=== PATIENT | female | born 1960 | race Caucasian/White ===

== ENCOUNTER 2020-05-07 13:19 | Inpatient (IN) | payer MEDICAID ==
[~2020-05-07] VITALS: Ht 167.6 cm; Wt 77.1 kg
[2020-05-07] MEDS: FAMOTIDINE 20MG TABLET PO SCH
[2020-05-07 14:02] LABS: BASOPHILS % 0.8 % (0.0-2.0); EOSINOPHILS % 2.2 % (0.0-5.0); HEMATOCRIT. 35.3 % (36.0-48.0); HEMOGLOBIN. 11.8 g/dL (12.0-16.0); LYMPHOCYTES % 40.3 % (20.0-50.0); MEAN CORPUSCULAR HEMOGLOBIN 35.8 pg (28.0-32.0); MEAN PLATELET VOLUME 7.7 fl (7.4-10.4); MONOCYTES % 11.5 % (2.0-8.0); NEUTROPHILS % 45.2 % (40.0-76.0); PLATELET 372 x1000/uL (130-400); RED CELL DISTRIBUTION WIDTH 19.5 % (11.6-14.6)
[2020-05-07 14:10] LABS: INR 1.1; PROTHROMBIN TIME 11.6 sec (9.6-11.0)
[2020-05-07 14:13] LABS: CHLORIDE 109 mEq/L (98-107)
[2020-05-07 14:17] LABS: ETHANOL BLOOD < 10 mg/dL
[2020-05-07 14:20] LABS: LDL CHOLESTEROL 69 mg/dL (5-100)
[2020-05-07] MEDS ORDERED: MORPHINE SULFATE 4 MG/ML CPJ (NOT FOR IM USE) IV ONE ×2 (14:30→16:15)
[2020-05-07] MEDS ORDERED: ASPIRIN 81MG TABLET PO ONE (14:30)
[2020-05-07] MEDS ORDERED: NITROGLYCERIN 0.4MG TABLET SL SL PRN (14:30)
[2020-05-07] MEDS ORDERED: ALTEPLASE 100MG/VIAL IV NR (14:56)
[2020-05-07] MEDS ORDERED: CONTAINER EMPTY IV SCH (14:57)
[2020-05-07] MEDS ORDERED: ALTEPLASE IV SCH (14:57)
[2020-05-07] MEDS ORDERED: *NO ASPIRIN X 24 HOURS XX SCH (15:00)
[2020-05-07] MEDS ORDERED: IOHEXOL 350 MG/ML 200ML INFUS..BTL IV ONE (15:13)
[2020-05-07] MEDS ORDERED: NICARDIPINE 50 MG in SODIUM CHLORIDE 0.9% 230 ML IV PRN (16:00)
[2020-05-07] MEDS ORDERED: NICARDIPINE 50 MG in SODIUM CHLORIDE 0.9% 250 ML IV PRN (16:15)
[2020-05-07] MEDS ORDERED: ZOLPIDEM TARTRATE 5MG TABLET PO PRN (20:45)
[2020-05-07] MEDS ORDERED: ONDANSETRON HCL 4MG/2ML INJ IV PRN (20:45)
[2020-05-07] MEDS ORDERED: CLONIDINE 0.1MG TABLET PO PRN (20:45)
[2020-05-07] MEDS ORDERED: HYDROCODONE/ACETAMINOPHEN 5/325MG TABLET PO PRN (20:45)
[2020-05-07] MEDS ORDERED: KETOROLAC 30MG/ML VIAL IV PRN (20:45)
[2020-05-07] MEDS ORDERED: MAGNESIUM/ALUMINUM HYDROXIDE/SIMETHICONE 30ML UDC PO PRN (20:45)
[2020-05-07] MEDS ORDERED: ACETAMINOPHEN 325MG TABLET PO PRN ×2 (20:45)
[2020-05-07] MEDS ORDERED: DIPHENHYDRAMINE 50MG/ML VIAL IV PRN (20:45)
[2020-05-07] MEDS: MORPHINE SULFATE 2 MG/ML CPJ (NOT FOR IM USE) IV PRN (21:40)
[2020-05-08] VITALS (18 sets, daily range): BP systolic 96–162; BP diastolic 45–96
[2020-05-08] MEDS: MORPHINE SULFATE 2 MG/ML CPJ (NOT FOR IM USE) IV PRN ×6 (02:00→20:24)
[2020-05-08] MEDS ORDERED: NICARDIPINE 50 MG in SODIUM CHLORIDE 0.9% 230 ML IV PRN (02:00)
[2020-05-08] MEDS: FAMOTIDINE 20MG TABLET PO SCH ×2 (10:10→20:23)
[2020-05-08] MEDS: AMLODIPINE 5MG TABLET PO SCH ×2 (10:10→20:23)
[2020-05-08] MEDS: SODIUM CHLORIDE 0.9% INJ 3ML FLUSH IVF SCH ×2 (12:16→20:23)
[2020-05-08 15:52] LABS: EOSINOPHILS % 2.6 % (0.0-5.0); HEMATOCRIT. 35.1 % (36.0-48.0); HEMOGLOBIN. 11.5 g/dL (12.0-16.0); LYMPHOCYTES % 35.7 % (20.0-50.0); MEAN CORPUSCULAR HEMOGLOBIN 36.2 pg (28.0-32.0); MEAN CORPUSCULAR VOLUME 110.4 fL (81.0-99.0); MEAN PLATELET VOLUME 8.2 fl (7.4-10.4); MONOCYTES % 12.3 % (2.0-8.0); NEUTROPHILS % 48.4 % (40.0-76.0); PLATELET 355 x1000/uL (130-400); RED BLOOD CELL COUNT 3.18 mill/uL (4.2-5.4); RED CELL DISTRIBUTION WIDTH 19.3 % (11.6-14.6)
[2020-05-08 18:03] LABS: PLATELET ESTIMATE NORMAL
[2020-05-09] VITALS (29 sets, daily range): BP systolic 92–167; BP diastolic 44–117
[2020-05-09] MEDS: MORPHINE SULFATE 2 MG/ML CPJ (NOT FOR IM USE) IV PRN ×4 (00:28→12:37)
[2020-05-09] MEDS: SODIUM CHLORIDE 0.9% INJ 3ML FLUSH IVF SCH ×2 (06:00→16:14)
[2020-05-09 06:16] LABS: CHLORIDE 108 mEq/L (98-107)
[2020-05-09 06:18] LABS: BASOPHILS % 0.8 % (0.0-2.0); EOSINOPHILS % 3.6 % (0.0-5.0); HEMATOCRIT. 35.3 % (36.0-48.0); HEMOGLOBIN. 11.7 g/dL (12.0-16.0); LYMPHOCYTES % 46.2 % (20.0-50.0); MEAN CORPUSCULAR HEMOGLOBIN 35.5 pg (28.0-32.0); MEAN CORPUSCULAR VOLUME 107.2 fL (81.0-99.0); MONOCYTES % 14.4 % (2.0-8.0); PLATELET 322 x1000/uL (130-400); RED BLOOD CELL COUNT 3.29 mill/uL (4.2-5.4); RED CELL DISTRIBUTION WIDTH 19.3 % (11.6-14.6)
[2020-05-09] MEDS: FAMOTIDINE 20MG TABLET PO SCH ×2 (08:35→20:34)
[2020-05-09] MEDS: AMLODIPINE 5MG TABLET PO SCH ×2 (08:35→20:34)
[2020-05-09] MEDS ORDERED: CLOPIDOGREL 75MG TABLET PO SCH (09:00)
[2020-05-09] MEDS ORDERED: ASPIRIN 81MG TABLET PO SCH (09:00)
[2020-05-09] MEDS ORDERED: LORAZEPAM 2MG/ML CPJ IV NR (11:00)
== END 2020-05-09 21:12 | DRG 45 ==
LOC: ER 13:41 → MICUSO 17:37 → EDBEDREQSVC 17:45 → EDBEDREQ 17:45 → 5EST 05-08 07:23 → CVICU 05-09 02:55 → 3WST 05-09 11:41
PROVIDERS: ADMIT Internal Medicine; ATTEND Internal Medicine
DX: I63.9 Cerebral infarction, unspecified (principal); N17.9 Acute kidney failure, unspecified; E44.0 Moderate protein-calorie malnutrition; R07.9 Chest pain, unspecified; I10 Essential (primary) hypertension; I25.10 Atherosclerotic heart disease of native coronary artery without angina pectoris; Z20.822 Contact with and (suspected) exposure to COVID-19; Z87.891 Personal history of nicotine dependence; I69.954 Hemiplegia and hemiparesis following unspecified cerebrovascular disease affecting left non-dominant side
CPT/HCPCS: 36415; 70496; 70551; 71045; 80048; 80053; 80061; 80320; 82962; 83721; 84484; 85025; 87426; 93005; 93880; 95816; 97162; 99291; J1885; J2060; J2270; J2997; J7060; Q9967; G0480

== ENCOUNTER 2020-05-10 14:10 | Inpatient (IN) | payer MEDICAID ==
[~2020-05-10] VITALS: Ht 157.5 cm; Wt 68.9 kg
[2020-05-10] MEDS ORDERED: NITROGLYCERIN OINT 1GM/INCH UDPKT TD ONE (15:00)
[2020-05-10] MEDS ORDERED: ASPIRIN 81MG TABLET PO ONE (15:00)
[2020-05-10 15:43] LABS: CHLORIDE 105 mEq/L (98-107)
[2020-05-10 15:45] LABS: PROTHROMBIN TIME 11.2 sec (9.6-11.0)
[2020-05-10 15:47] LABS: BASOPHILS % 0.5 % (0.0-2.0); EOSINOPHILS % 0.9 % (0.0-5.0); HEMATOCRIT. 40.3 % (36.0-48.0); HEMOGLOBIN. 13.4 g/dL (12.0-16.0); LYMPHOCYTES % 28.4 % (20.0-50.0); MEAN CORPUSCULAR HEMOGLOBIN 35.8 pg (28.0-32.0); MEAN CORPUSCULAR VOLUME 107.3 fL (81.0-99.0); MEAN PLATELET VOLUME 7.8 fl (7.4-10.4); MONOCYTES % 9.6 % (2.0-8.0); NEUTROPHILS % 60.6 % (40.0-76.0); PLATELET 347 x1000/uL (130-400); RED BLOOD CELL COUNT 3.76 mill/uL (4.2-5.4); RED CELL DISTRIBUTION WIDTH 18.1 % (11.6-14.6)
[2020-05-10] MEDS ORDERED: MORPHINE SULFATE 2 MG/ML CPJ (NOT FOR IM USE) IV ONE (18:00)
[2020-05-10] MEDS ORDERED: MAGNESIUM/ALUMINUM HYDROXIDE/SIMETHICONE 30ML UDC PO PRN (18:30)
[2020-05-10] MEDS ORDERED: CLONIDINE 0.1MG TABLET PO PRN (18:30)
[2020-05-10] MEDS ORDERED: ACETAMINOPHEN 325MG TABLET PO PRN (18:30)
[2020-05-10] MEDS ORDERED: SODIUM CHLORIDE 0.45% 1,000 ML IV ONE (18:30)
[2020-05-10] MEDS ORDERED: ONDANSETRON HCL 4MG/2ML INJ IV PRN (18:30)
[2020-05-10] MEDS ORDERED: DOCUSATE SODIUM 100MG CAPSULE PO PRN (18:30)
[2020-05-10] MEDS: CLOPIDOGREL 75MG TABLET PO SCH (18:40)
[2020-05-10] MEDS: METOPROLOL TARTRATE 25MG TABLET PO SCH (18:40)
[2020-05-10] MEDS: AMLODIPINE 10MG TABLET PO SCH (18:41)
[2020-05-10 22:09] VITALS: BP 168/80
[2020-05-10 22:35] VITALS: BP 149/82
[2020-05-10] MEDS: HYDROCODONE/ACETAMINOPHEN 5/325MG TABLET PO PRN ×2 (22:53→23:19)
[2020-05-10] MEDS: KETOROLAC 30MG/ML VIAL IV PRN (23:57)
[2020-05-11 00:48] LABS: CREATINE KINASE MB FRACTION 1.1 ng/mL (0.5-3.6)
[2020-05-11 00:52] VITALS: BP 138/88
[2020-05-11 04:00] VITALS: BP 162/83
[2020-05-11] MEDS: KETOROLAC 30MG/ML VIAL IV PRN (06:25)
[2020-05-11] MEDS ORDERED: LORAZEPAM 2MG/ML CPJ IV SCH (06:45)
[2020-05-11 07:06] LABS: CHLORIDE 108 mEq/L (98-107)
[2020-05-11 07:27] LABS: LDL CHOLESTEROL 88 mg/dL (5-100)
[2020-05-11 07:28] LABS: CREATINE KINASE 46 IU/L (26-192)
[2020-05-11 07:29] LABS: HDL CHOLESTEROL 63 mg/dL (40-59)
[2020-05-11 07:31] LABS: CREATINE KINASE MB FRACTION 1.1 ng/mL (0.5-3.6)
[2020-05-11 08:00] VITALS: BP 156/77
[2020-05-11] MEDS: MORPHINE SULFATE 2 MG/ML CPJ (NOT FOR IM USE) IV PRN ×4 (08:35→23:55)
[2020-05-11] MEDS: ASPIRIN 81MG EC TABLET PO SCH (09:00)
[2020-05-11 11:12] LABS: EOSINOPHILS % 1.2 % (0.0-5.0); HEMOGLOBIN. 12.4 g/dL (12.0-16.0); LYMPHOCYTES % 29.4 % (20.0-50.0); MEAN CORPUSCULAR HEMOGLOBIN 35.7 pg (28.0-32.0); MEAN CORPUSCULAR VOLUME 106.5 fL (81.0-99.0); MEAN PLATELET VOLUME 8.1 fl (7.4-10.4); MONOCYTES % 6.8 % (2.0-8.0); NEUTROPHILS % 61.6 % (40.0-76.0); RED BLOOD CELL COUNT 3.48 mill/uL (4.2-5.4); RED CELL DISTRIBUTION WIDTH 18.2 % (11.6-14.6)
[2020-05-11 11:14] LABS: PLATELET 369 x1000/uL (130-400)
[2020-05-11 11:39] LABS: T4 FREE 0.62 ng/dL (0.76-1.46)
[2020-05-11 12:00] VITALS: BP 135/73
[2020-05-11] MEDS: AMLODIPINE 10MG TABLET PO SCH ×2 (12:26→12:30)
[2020-05-11] MEDS: CLOPIDOGREL 75MG TABLET PO SCH (12:29)
[2020-05-11] MEDS: METOPROLOL TARTRATE 25MG TABLET PO SCH ×2 (12:30→17:45)
[2020-05-11 16:00] VITALS: BP 129/70
[2020-05-11] MEDS ORDERED: REGADENOSON 0.4 MG/5 ML IV NR (16:00)
[2020-05-11 16:15] LABS: CREATINE KINASE 34 IU/L (26-192)
[2020-05-11 16:22] LABS: CREATINE KINASE MB FRACTION < 1.0 ng/mL (0.5-3.6)
[2020-05-11 20:00] VITALS: BP 118/63
[2020-05-11] MEDS: LEVETIRACETAM 500MG TABLET PO SCH (20:18)
[2020-05-12] VITALS: BP 137/71
[2020-05-12 00:47] LABS: CREATINE KINASE MB FRACTION 1.2 ng/mL (0.5-3.6)
[2020-05-12 04:00] VITALS: BP 150/69
[2020-05-12] MEDS: MORPHINE SULFATE 2 MG/ML CPJ (NOT FOR IM USE) IV PRN ×4 (05:15→19:49)
[2020-05-12 07:12] LABS: CREATINE KINASE 32 IU/L (26-192)
[2020-05-12 07:14] LABS: CREATINE KINASE MB FRACTION < 1.0 ng/mL (0.5-3.6)
[2020-05-12 08:00] VITALS: BP 155/73
[2020-05-12] MEDS: METOPROLOL TARTRATE 25MG TABLET PO SCH ×3 (09:00→18:20)
[2020-05-12] MEDS: ASPIRIN 81MG EC TABLET PO SCH (09:36)
[2020-05-12] MEDS: CLOPIDOGREL 75MG TABLET PO SCH (09:37)
[2020-05-12] MEDS: LEVETIRACETAM 500MG TABLET PO SCH ×2 (09:37→20:57)
[2020-05-12 12:00] VITALS: BP 152/84
[2020-05-12 16:00] VITALS: BP 128/70
[2020-05-12] MEDS: LOSARTAN POTASSIUM 50 MG TABLET PO SCH (18:19)
[2020-05-12 20:00] VITALS: BP 126/76
[2020-05-13] VITALS: BP 130/66
[2020-05-13] MEDS: MORPHINE SULFATE 2 MG/ML CPJ (NOT FOR IM USE) IV PRN ×3 (00:14→08:50)
[2020-05-13 04:00] VITALS: BP 130/60
[2020-05-13 08:00] VITALS: BP 143/75
[2020-05-13] MEDS: LEVETIRACETAM 500MG TABLET PO SCH (08:48)
[2020-05-13] MEDS: ASPIRIN 81MG EC TABLET PO SCH (08:48)
[2020-05-13] MEDS: LOSARTAN POTASSIUM 50 MG TABLET PO SCH (08:48)
[2020-05-13] MEDS: AMLODIPINE 10MG TABLET PO SCH (08:49)
[2020-05-13] MEDS: CLOPIDOGREL 75MG TABLET PO SCH (08:52)
[2020-05-13] MEDS: METOPROLOL TARTRATE 25MG TABLET PO SCH (08:53)
[2020-05-13 11:23] VITALS: BP 143/72
[2020-05-13 12:00] VITALS: BP 143/72
== END 2020-05-13 13:50 | DRG 203 ==
LOC: ER 14:10 → EDBEDREQ 14:54 → EDBEDREQTM 16:56 → 8WST 17:27 → EDBEDREQ 17:39 → EDBEDREQTM 17:48 → ENRESERV 20:37
PROVIDERS: ADMIT Hospitalist; ATTEND Hospitalist
PROC: 4A00X4Z Measurement of Central Nervous Electrical Activity, External Approach (ICD-10-PCS; principal; 2020-05-09)
DX: M94.0 Chondrocostal junction syndrome [Tietze] (principal); N17.0 Acute kidney failure with tubular necrosis; R13.10 Dysphagia, unspecified; E78.5 Hyperlipidemia, unspecified; G40.909 Epilepsy, unspecified, not intractable, without status epilepticus; I16.0 Hypertensive urgency; I10 Essential (primary) hypertension; Z20.822 Contact with and (suspected) exposure to COVID-19; I25.10 Atherosclerotic heart disease of native coronary artery without angina pectoris; R77.8 Other specified abnormalities of plasma proteins; I69.398 Other sequelae of cerebral infarction; I73.1 Thromboangiitis obliterans [Buerger's disease]; I69.334 Monoplegia of upper limb following cerebral infarction affecting left non-dominant side
CPT/HCPCS: 36415; 70551; 71045; 80053; 80061; 82550; 82553; 83036; 83880; 84439; 84443; 84484; 85025; 85379; 87426; 92610; 93005; 93306; 93970; 95816; 99285; J1885; J2060; J2270

== ENCOUNTER 2020-07-14 23:05 | Inpatient (IN) | payer MEDICAID ==
[~2020-07-14] VITALS: Ht 132.1 cm; Wt 73.5 kg
[2020-07-14] MEDS ORDERED: MORPHINE SULFATE 4 MG/ML CPJ (NOT FOR IM USE) IV STA (23:22)
[2020-07-14] MEDS ORDERED: ONDANSETRON HCL 4MG/2ML INJ IV STA (23:22)
[2020-07-14] MEDS ORDERED: SODIUM CHLORIDE 0.9% 1,000 ML IV ONE (23:30)
[2020-07-15] VITALS (8 sets, daily range): BP systolic 81–126; BP diastolic 49–81
[2020-07-15 00:04] LABS: EOSINOPHILS % 0.6 % (0.0-5.0); HEMATOCRIT. 35.2 % (36.0-48.0); HEMOGLOBIN. 11.8 g/dL (12.0-16.0); LYMPHOCYTES % 22.1 % (20.0-50.0); MEAN CORPUSCULAR HEMOGLOBIN 31.8 pg (28.0-32.0); MONOCYTES % 6.5 % (2.0-8.0); NEUTROPHILS % 69.8 % (40.0-76.0); PLATELET 738 x1000/uL (130-400); RED CELL DISTRIBUTION WIDTH 17.2 % (11.6-14.6)
[2020-07-15 00:11] LABS: CHLORIDE 105 mEq/L (98-107)
[2020-07-15] MEDS ORDERED: IPRATROPIUM/ALBUTEROL 0.5-3(2.5)MG/3ML NEB HHN PRN (02:15)
[2020-07-15] MEDS ORDERED: ACETAMINOPHEN 325MG TABLET PO PRN (02:15)
[2020-07-15] MEDS: ONDANSETRON HCL 4MG/2ML INJ IV PRN ×2 (02:59→10:31)
[2020-07-15] MEDS: HYDROCODONE/APAP 7.5/325MG 1 TAB TABLET PO PRN ×2 (03:16→21:51)
[2020-07-15] MEDS: PANTOPRAZOLE SODIUM 40 MG/VIAL IV SCH ×3 (03:44→21:00)
[2020-07-15] MEDS: SODIUM CHLORIDE 0.9% 1,000 ML IV SCH ×3 (04:03→21:53)
[2020-07-15] MEDS: MORPHINE SULFATE 2 MG/ML CPJ (NOT FOR IM USE) IV PRN ×4 (05:32→19:00)
[2020-07-15] MEDS: SUCRALFATE 1 G/10 ML UDC PO SCH ×4 (10:29→21:00)
[2020-07-15] MEDS ORDERED: ATOR40TA70 PO (11:43)
[2020-07-15] MEDS ORDERED: ASPI-1406 PO (11:43)
[2020-07-15] MEDS ORDERED: OMEP20CA14 PO (11:43)
[2020-07-15] MEDS ORDERED: DOCU100T MT (11:43)
[2020-07-15] MEDS ORDERED: LISI20TA31 PO (11:43)
[2020-07-15] MEDS ORDERED: LOV40 SQ (11:43)
[2020-07-15] MEDS ORDERED: CLON0.1T PO (11:43)
[2020-07-15] MEDS ORDERED: ZOLP5TAB2 PO (11:43)
[2020-07-15] MEDS ORDERED: AMLO-375 PO (11:43)
[2020-07-15] MEDS ORDERED: BISACODYL 10MG SUPP PR NR (12:45)
[2020-07-15 15:20] LABS: HEMATOCRIT 23.2 % (36.0-48.0); HEMOGLOBIN 7.7 g/dL (12.0-16.0); MEAN CORPUSCULAR HEMOGLOBIN 32.4 pg (28.0-32.0); MEAN CORPUSCULAR VOLUME 97.9 fL (81.0-99.0); PLATELET 557 x1000/uL (130-400); RED BLOOD CELL COUNT 2.37 mill/uL (4.2-5.4); RED CELL DISTRIBUTION WIDTH 17.5 % (11.6-14.6)
[2020-07-15 15:43] LABS: AMYLASE 36 IU/L (25-115)
[2020-07-15 15:45] LABS: TOTAL IRON BINDING CAPACITY 190 ug/dL (250-450)
[2020-07-15 16:06] LABS: FOLIC ACID (FOLATE) SERUM 15.6 ng/mL (>5.38)
[2020-07-16] VITALS (26 sets, daily range): BP systolic 71–153; BP diastolic 46–95
[2020-07-16] MEDS: KETOROLAC 15MG/ML VIAL IV PRN (01:54)
[2020-07-16] MEDS: ONDANSETRON HCL 4MG/2ML INJ IV PRN (03:25)
[2020-07-16] MEDS: MORPHINE SULFATE 2 MG/ML CPJ (NOT FOR IM USE) IV PRN ×5 (06:40→23:35)
[2020-07-16] MEDS: SUCRALFATE 1 G/10 ML UDC PO SCH ×4 (07:30→21:01)
[2020-07-16 07:49] LABS: BASOPHILS % 0.9 % (0.0-2.0); EOSINOPHILS % 3.4 % (0.0-5.0); MEAN CORPUSCULAR HEMOGLOBIN 31.9 pg (28.0-32.0); MEAN CORPUSCULAR VOLUME 97.5 fL (81.0-99.0); MEAN PLATELET VOLUME 7.6 fl (7.4-10.4); MONOCYTES % 4.5 % (2.0-8.0); NEUTROPHILS % 57.2 % (40.0-76.0); PLATELET 494 x1000/uL (130-400); RED BLOOD CELL COUNT 1.98 mill/uL (4.2-5.4); RED CELL DISTRIBUTION WIDTH 16.8 % (11.6-14.6)
[2020-07-16 08:27] LABS: CHLORIDE 114 mEq/L (98-107)
[2020-07-16 09:35] LABS: HEMATOCRIT. 19.3 % (36.0-48.0); HEMOGLOBIN. 6.3 g/dL (12.0-16.0)
[2020-07-16] MEDS: PANTOPRAZOLE SODIUM 40 MG/VIAL IV SCH ×2 (10:38→21:01)
[2020-07-16] MEDS: SODIUM CHLORIDE 0.9% 1,000 ML IV SCH (10:38)
[2020-07-16] MEDS: IRON SUCROSE COMPLEX 100 MG/5 ML ML IV SCH (18:46)
[2020-07-16 23:34] LABS: HEMATOCRIT 31.9 % (36.0-48.0); HEMOGLOBIN 10.8 g/dL (12.0-16.0)
[2020-07-17] VITALS (10 sets, daily range): BP systolic 110–159; BP diastolic 67–101
[2020-07-17] MEDS: MORPHINE SULFATE 2 MG/ML CPJ (NOT FOR IM USE) IV PRN ×6 (03:19→23:19)
[2020-07-17 05:32] LABS: CHLORIDE 111 mEq/L (98-107)
[2020-07-17 05:38] LABS: BASOPHILS % 0.9 % (0.0-2.0); EOSINOPHILS % 4.5 % (0.0-5.0); HEMATOCRIT. 30.1 % (36.0-48.0); HEMOGLOBIN. 10.3 g/dL (12.0-16.0); LYMPHOCYTES % 30.7 % (20.0-50.0); MEAN CORPUSCULAR HEMOGLOBIN 30.5 pg (28.0-32.0); MEAN CORPUSCULAR VOLUME 89.5 fL (81.0-99.0); MEAN PLATELET VOLUME 7.8 fl (7.4-10.4); MONOCYTES % 5.8 % (2.0-8.0); NEUTROPHILS % 58.1 % (40.0-76.0); PHOSPHORUS 2.7 mg/dL (2.5-4.9); PLATELET 423 x1000/uL (130-400); RED BLOOD CELL COUNT 3.37 mill/uL (4.2-5.4); RED CELL DISTRIBUTION WIDTH 19.3 % (11.6-14.6)
[2020-07-17] MEDS: SODIUM CHLORIDE 0.9% 1,000 ML IV SCH ×3 (05:51→16:38)
[2020-07-17] MEDS: PANTOPRAZOLE SODIUM 40 MG/VIAL IV SCH ×2 (09:09→20:14)
[2020-07-17] MEDS: SUCRALFATE 1 G/10 ML UDC PO SCH ×4 (09:09→20:14)
[2020-07-17] MEDS: ONDANSETRON HCL 4MG/2ML INJ IV PRN (10:44)
[2020-07-17] MEDS: IRON SUCROSE COMPLEX 100 MG/5 ML ML IV SCH (16:38)
[2020-07-18] VITALS: BP 129/78
[2020-07-18] MEDS: SODIUM CHLORIDE 0.9% 1,000 ML IV SCH ×3 (02:23→22:00)
[2020-07-18] MEDS: MORPHINE SULFATE 2 MG/ML CPJ (NOT FOR IM USE) IV PRN ×5 (03:30→21:38)
[2020-07-18 04:00] VITALS: BP 142/96
[2020-07-18 05:18] LABS: INR 1.1; PROTHROMBIN TIME 11.6 sec (9.6-11.0)
[2020-07-18 05:24] LABS: CHLORIDE 112 mEq/L (98-107)
[2020-07-18 05:29] LABS: PHOSPHORUS 2.8 mg/dL (2.5-4.9)
[2020-07-18 07:14] LABS: BASOPHILS % 0.8 % (0.0-2.0); EOSINOPHILS % 5.2 % (0.0-5.0); HEMATOCRIT. 31.3 % (36.0-48.0); HEMOGLOBIN. 10.1 g/dL (12.0-16.0); LYMPHOCYTES % 37.5 % (20.0-50.0); MEAN CORPUSCULAR HEMOGLOBIN 29.2 pg (28.0-32.0); MEAN CORPUSCULAR VOLUME 90.2 fL (81.0-99.0); MEAN PLATELET VOLUME 8.6 fl (7.4-10.4); MONOCYTES % 6.6 % (2.0-8.0); NEUTROPHILS % 49.9 % (40.0-76.0); PLATELET 422 x1000/uL (130-400); RED BLOOD CELL COUNT 3.47 mill/uL (4.2-5.4)
[2020-07-18] MEDS: SUCRALFATE 1 G/10 ML UDC PO SCH ×4 (07:29→19:59)
[2020-07-18 08:00] VITALS: BP 136/79
[2020-07-18] MEDS: PANTOPRAZOLE SODIUM 40 MG/VIAL IV SCH ×2 (09:11→17:20)
[2020-07-18] MEDS ORDERED: LORAZEPAM 2MG/ML CPJ IV NR (11:15)
[2020-07-18 11:30] VITALS: BP 145/84
[2020-07-18] MEDS ORDERED: LABETALOL 5MG/ML SYR 20 MG/4 ML SYRINGE IV PRN (15:45)
[2020-07-18] MEDS ORDERED: HYDROMORPHONE HCL/PF 2MG/ML CPJ IV PRN (15:45)
[2020-07-18] MEDS ORDERED: ONDANSETRON HCL 4MG/2ML INJ IV PRN (15:45)
[2020-07-18] MEDS ORDERED: MEPERIDINE HCL/PF 25MG/ML CPJ IV PRN (15:45)
[2020-07-18] MEDS ORDERED: PROPOFOL 200MG/20ML VIAL IV ONE (15:49)
[2020-07-18] MEDS: IRON SUCROSE COMPLEX 100 MG/5 ML ML IV SCH (17:21)
[2020-07-18] MEDS: METOCLOPRAMIDE HCL 10MG/2ML VIAL IV SCH (17:21)
[2020-07-18 20:00] VITALS: BP 136/81
[2020-07-18] MEDS: KETOROLAC 15MG/ML VIAL IV PRN (20:00)
[2020-07-19] VITALS (8 sets, daily range): BP systolic 105–162; BP diastolic 66–99
[2020-07-19] MEDS: MORPHINE SULFATE 2 MG/ML CPJ (NOT FOR IM USE) IV PRN ×6 (01:29→21:54)
[2020-07-19 07:04] LABS: EOSINOPHILS % 5.3 % (0.0-5.0); HEMOGLOBIN. 9.8 g/dL (12.0-16.0); LYMPHOCYTES % 35.3 % (20.0-50.0); MEAN CORPUSCULAR HEMOGLOBIN 30.4 pg (28.0-32.0); MEAN CORPUSCULAR VOLUME 90.1 fL (81.0-99.0); MEAN PLATELET VOLUME 8.7 fl (7.4-10.4); MONOCYTES % 6.3 % (2.0-8.0); NEUTROPHILS % 52.1 % (40.0-76.0); PLATELET 416 x1000/uL (130-400); RED BLOOD CELL COUNT 3.22 mill/uL (4.2-5.4); RED CELL DISTRIBUTION WIDTH 19.4 % (11.6-14.6)
[2020-07-19 07:13] LABS: CHLORIDE 113 mEq/L (98-107)
[2020-07-19 07:26] LABS: PHOSPHORUS 2.8 mg/dL (2.5-4.9)
[2020-07-19] MEDS: METOCLOPRAMIDE HCL 10MG/2ML VIAL IV SCH ×3 (09:29→15:59)
[2020-07-19] MEDS: PANTOPRAZOLE SODIUM 40 MG/VIAL IV SCH ×2 (09:30→15:59)
[2020-07-19] MEDS: SUCRALFATE 1 G/10 ML UDC PO SCH ×4 (09:30→21:53)
[2020-07-19] MEDS: SODIUM CHLORIDE 0.9% 1,000 ML IV SCH ×2 (13:42→19:11)
[2020-07-19] MEDS: IRON SUCROSE COMPLEX 100 MG/5 ML ML IV SCH (15:59)
[2020-07-19] MEDS: ONDANSETRON HCL 4MG/2ML INJ IV PRN (19:51)
[2020-07-20] VITALS (7 sets, daily range): BP systolic 120–152; BP diastolic 64–114
[2020-07-20] MEDS: MORPHINE SULFATE 2 MG/ML CPJ (NOT FOR IM USE) IV PRN ×6 (02:05→22:54)
[2020-07-20] MEDS: SODIUM CHLORIDE 0.9% 1,000 ML IV SCH ×3 (03:55→22:55)
[2020-07-20] MEDS: SUCRALFATE 1 G/10 ML UDC PO SCH ×4 (07:39→20:05)
[2020-07-20] MEDS: METOCLOPRAMIDE HCL 10MG/2ML VIAL IV SCH ×3 (07:40→17:12)
[2020-07-20] MEDS: PANTOPRAZOLE SODIUM 40 MG/VIAL IV SCH ×2 (08:33→17:12)
[2020-07-20] MEDS: ONDANSETRON HCL 4MG/2ML INJ IV PRN (16:57)
[2020-07-20] MEDS: IRON SUCROSE COMPLEX 100 MG/5 ML ML IV SCH (17:11)
[2020-07-21 02:00] VITALS: BP 145/79
[2020-07-21] MEDS: MORPHINE SULFATE 2 MG/ML CPJ (NOT FOR IM USE) IV PRN ×4 (02:40→12:43)
[2020-07-21 04:00] VITALS: BP 137/73
[2020-07-21 08:00] VITALS: BP 157/84
[2020-07-21] MEDS: PANTOPRAZOLE SODIUM 40 MG/VIAL IV SCH (08:32)
[2020-07-21] MEDS: SUCRALFATE 1 G/10 ML UDC PO SCH ×4 (08:32→21:15)
[2020-07-21] MEDS: METOCLOPRAMIDE HCL 10MG/2ML VIAL IV SCH ×2 (08:32→11:56)
[2020-07-21] MEDS: SODIUM CHLORIDE 0.9% 1,000 ML IV SCH (10:35)
[2020-07-21 12:00] VITALS: BP 125/81
[2020-07-21 16:00] VITALS: BP 126/77
[2020-07-21] MEDS: HYDROCODONE/ACETAMINOPHEN 10/325MG TABLET PO PRN ×2 (16:36→21:19)
[2020-07-21] MEDS: PANTOPRAZOLE 40MG DR TABLET PO SCH (16:36)
[2020-07-21] MEDS: METOCLOPRAMIDE HCL 5MG TABLET PO SCH (17:06)
[2020-07-21 20:00] VITALS: BP 134/77
[2020-07-22] VITALS: BP 143/85
[2020-07-22] MEDS: METOCLOPRAMIDE HCL 5MG TABLET PO SCH ×5 (00:56→23:03)
[2020-07-22] MEDS: HYDROCODONE/ACETAMINOPHEN 10/325MG TABLET PO PRN ×6 (01:00→19:43)
[2020-07-22 04:00] VITALS: BP 143/79
[2020-07-22 08:00] VITALS: BP 147/75
[2020-07-22] MEDS: SUCRALFATE 1 G/10 ML UDC PO SCH ×4 (08:09→21:00)
[2020-07-22] MEDS: PANTOPRAZOLE 40MG DR TABLET PO SCH ×2 (08:57→17:45)
[2020-07-22 12:00] VITALS: BP 135/76
[2020-07-22 16:00] VITALS: BP 141/87
[2020-07-22] MEDS ORDERED: MAGNESIUM CITRATE 300ML SOLUTION PO NR (17:00)
[2020-07-22] MEDS: ONDANSETRON HCL 4MG/2ML INJ IV PRN ×2 (18:26→22:26)
[2020-07-22] MEDS: CLONIDINE 0.1MG TABLET PO PRN (18:52)
[2020-07-22 20:00] VITALS: BP 154/87
[2020-07-22] MEDS: SENNOSIDES/DOCUSATE SOD 8.6/50MG TABLET PO SCH (21:00)
[2020-07-23] VITALS: BP 113/82
[2020-07-23] MEDS: HYDROCODONE/ACETAMINOPHEN 10/325MG TABLET PO PRN ×6 (00:11→18:26)
[2020-07-23 04:00] VITALS: BP 130/78
[2020-07-23] MEDS: METOCLOPRAMIDE HCL 5MG TABLET PO SCH ×4 (06:24→23:26)
[2020-07-23] MEDS: ONDANSETRON HCL 4MG/2ML INJ IV PRN ×3 (06:25→19:00)
[2020-07-23 08:00] VITALS: BP 125/71
[2020-07-23] MEDS: SUCRALFATE 1 G/10 ML UDC PO SCH ×4 (09:11→20:16)
[2020-07-23] MEDS: PANTOPRAZOLE 40MG DR TABLET PO SCH ×3 (09:11→20:20)
[2020-07-23] MEDS: POLYETHYLENE GLYCOL 3350 (17GM) 1 DOSE PACK PO SCH (09:17)
[2020-07-23 11:30] VITALS: BP 135/74
[2020-07-23 16:00] VITALS: BP 145/75
[2020-07-23] MEDS: CLONIDINE 0.1MG TABLET PO PRN (18:51)
[2020-07-23] MEDS ORDERED: NA PHOS,M-B/NA PHOS,DI-BA ENEMA 118ML PR NR (19:45)
[2020-07-23 20:00] VITALS: BP 161/92
[2020-07-23] MEDS: AMLODIPINE 5MG TABLET PO SCH (20:16)
[2020-07-23] MEDS: SENNOSIDES/DOCUSATE SOD 8.6/50MG TABLET PO SCH (20:17)
[2020-07-23] MEDS: LISINOPRIL 10MG TABLET PO SCH (20:34)
[2020-07-23] MEDS ORDERED: FAMOTIDINE 20MG TABLET PO SCH (21:00)
[2020-07-23] MEDS: HYDROCODONE/ACETAMINOPHEN 5/325MG TABLET PO PRN (21:51)
[2020-07-23] MEDS: MAGNESIUM/ALUMINUM HYDROXIDE/SIMETHICONE 30ML UDC PO PRN (23:25)
[2020-07-24] VITALS: BP 98/43
[2020-07-24 04:00] VITALS: BP 143/70
[2020-07-24] MEDS: HYDROCODONE/ACETAMINOPHEN 5/325MG TABLET PO PRN ×2 (06:09→21:42)
[2020-07-24] MEDS: PANTOPRAZOLE 40MG DR TABLET PO SCH (06:09)
[2020-07-24] MEDS: METOCLOPRAMIDE HCL 5MG TABLET PO SCH ×3 (06:09→17:47)
[2020-07-24] MEDS: SUCRALFATE 1 G/10 ML UDC PO SCH ×5 (06:15→21:40)
[2020-07-24] MEDS: POLYETHYLENE GLYCOL 3350 (17GM) 1 DOSE PACK PO SCH (09:00)
[2020-07-24] MEDS: LISINOPRIL 10MG TABLET PO SCH ×2 (09:21→21:42)
[2020-07-24] MEDS: AMLODIPINE 5MG TABLET PO SCH ×2 (09:22→21:41)
[2020-07-24] MEDS ORDERED: NA PHOS,M-B/NA PHOS,DI-BA ENEMA 118ML PR SCH (10:00)
[2020-07-24] MEDS: ONDANSETRON HCL 4MG/2ML INJ IV PRN ×2 (12:51→16:36)
[2020-07-24] MEDS: LACTULOSE 20G/30ML UDC PO SCH ×2 (14:53→21:40)
[2020-07-24 20:00] VITALS: BP 131/95
[2020-07-24] MEDS: FAMOTIDINE 20MG TABLET PO SCH (21:40)
[2020-07-24] MEDS: SENNOSIDES/DOCUSATE SOD 8.6/50MG TABLET PO SCH (21:40)
[2020-07-24] MEDS: GABAPENTIN 100MG CAPSULE PO SCH (21:42)
[2020-07-25] MEDS: METOCLOPRAMIDE HCL 5MG TABLET PO SCH ×4 (01:05→17:06)
[2020-07-25] MEDS: ONDANSETRON HCL 4MG/2ML INJ IV PRN ×2 (03:14→18:52)
[2020-07-25 04:00] VITALS: BP 155/86
[2020-07-25] MEDS: HYDROCODONE/ACETAMINOPHEN 5/325MG TABLET PO PRN ×3 (04:06→17:06)
[2020-07-25] MEDS: GABAPENTIN 100MG CAPSULE PO SCH ×3 (06:26→21:49)
[2020-07-25] MEDS: SUCRALFATE 1 G/10 ML UDC PO SCH ×5 (06:27→21:44)
[2020-07-25] MEDS: LACTULOSE 20G/30ML UDC PO SCH ×3 (06:27→21:45)
[2020-07-25 08:00] VITALS: BP 144/89
[2020-07-25] MEDS: POLYETHYLENE GLYCOL 3350 (17GM) 1 DOSE PACK PO SCH (08:59)
[2020-07-25] MEDS: FAMOTIDINE 20MG TABLET PO SCH ×2 (08:59→21:44)
[2020-07-25] MEDS: LISINOPRIL 10MG TABLET PO SCH ×2 (09:00→21:45)
[2020-07-25] MEDS: AMLODIPINE 5MG TABLET PO SCH ×2 (09:00→21:44)
[2020-07-25 12:00] VITALS: BP 128/81
[2020-07-25 16:00] VITALS: BP 115/74
[2020-07-25 20:00] VITALS: BP 151/98
[2020-07-25] MEDS: MAGNESIUM/ALUMINUM HYDROXIDE/SIMETHICONE 30ML UDC PO PRN (21:43)
[2020-07-25] MEDS: SENNOSIDES/DOCUSATE SOD 8.6/50MG TABLET PO SCH (21:45)
[2020-07-26] VITALS: BP 158/96
[2020-07-26] MEDS: HYDROCODONE/ACETAMINOPHEN 5/325MG TABLET PO PRN ×6 (00:09→21:08)
[2020-07-26] MEDS: METOCLOPRAMIDE HCL 5MG TABLET PO SCH ×4 (00:09→16:44)
[2020-07-26] MEDS: CLONIDINE 0.2MG TABLET PO PRN (00:10)
[2020-07-26 04:00] VITALS: BP 114/76
[2020-07-26] MEDS: LACTULOSE 20G/30ML UDC PO SCH ×3 (05:23→21:07)
[2020-07-26] MEDS: GABAPENTIN 100MG CAPSULE PO SCH ×3 (05:24→21:08)
[2020-07-26] MEDS: SUCRALFATE 1 G/10 ML UDC PO SCH ×4 (07:20→21:00)
[2020-07-26] MEDS: POLYETHYLENE GLYCOL 3350 (17GM) 1 DOSE PACK PO SCH (08:24)
[2020-07-26] MEDS: FAMOTIDINE 20MG TABLET PO SCH (08:25)
[2020-07-26] MEDS: AMLODIPINE 5MG TABLET PO SCH ×2 (08:25→21:00)
[2020-07-26] MEDS: LISINOPRIL 10MG TABLET PO SCH ×2 (08:25→21:00)
[2020-07-26] MEDS: PANTOPRAZOLE 40MG DR TABLET PO SCH ×2 (11:45→21:07)
[2020-07-26] MEDS: ONDANSETRON HCL 4MG/2ML INJ IV PRN (18:00)
[2020-07-26 20:00] VITALS: BP 96/66
[2020-07-26] MEDS: SENNOSIDES/DOCUSATE SOD 8.6/50MG TABLET PO SCH (21:07)
[2020-07-27] VITALS: BP 121/77
[2020-07-27] MEDS: METOCLOPRAMIDE HCL 5MG TABLET PO SCH ×5 (00:47→23:17)
[2020-07-27] MEDS: ONDANSETRON HCL 4MG/2ML INJ IV PRN ×4 (00:54→22:08)
[2020-07-27] MEDS: HYDROCODONE/ACETAMINOPHEN 5/325MG TABLET PO PRN ×6 (03:11→23:16)
[2020-07-27 04:00] VITALS: BP 109/73
[2020-07-27] MEDS: LACTULOSE 20G/30ML UDC PO SCH ×4 (05:24→22:04)
[2020-07-27] MEDS: GABAPENTIN 100MG CAPSULE PO SCH ×3 (05:24→22:04)
[2020-07-27] MEDS: SUCRALFATE 1 G/10 ML UDC PO SCH ×5 (07:20→22:04)
[2020-07-27 08:00] VITALS: BP 106/74
[2020-07-27] MEDS: AMLODIPINE 5MG TABLET PO SCH ×2 (09:00→21:00)
[2020-07-27] MEDS: LISINOPRIL 10MG TABLET PO SCH ×2 (09:00→21:00)
[2020-07-27] MEDS: POLYETHYLENE GLYCOL 3350 (17GM) 1 DOSE PACK PO SCH (09:34)
[2020-07-27] MEDS: PANTOPRAZOLE 40MG DR TABLET PO SCH ×2 (09:36→21:00)
[2020-07-27 12:00] VITALS: BP 112/68
[2020-07-27 16:00] VITALS: BP 114/76
[2020-07-27 19:28] LABS: BASOPHILS % 1.3 % (0.0-2.0); EOSINOPHILS % 3.3 % (0.0-5.0); HEMATOCRIT. 32.9 % (36.0-48.0); HEMOGLOBIN. 10.7 g/dL (12.0-16.0); LYMPHOCYTES % 30.7 % (20.0-50.0); MEAN CORPUSCULAR HEMOGLOBIN 30.4 pg (28.0-32.0); MEAN CORPUSCULAR VOLUME 92.9 fL (81.0-99.0); MONOCYTES % 7.1 % (2.0-8.0); NEUTROPHILS % 57.6 % (40.0-76.0); PLATELET 473 x1000/uL (130-400); RED BLOOD CELL COUNT 3.54 mill/uL (4.2-5.4); RED CELL DISTRIBUTION WIDTH 20.2 % (11.6-14.6)
[2020-07-27 19:38] LABS: CHLORIDE 106 mEq/L (98-107)
[2020-07-27 20:00] VITALS: BP 109/69
[2020-07-27] MEDS: SENNOSIDES/DOCUSATE SOD 8.6/50MG TABLET PO SCH (22:06)
[2020-07-28] VITALS: BP 147/84
[2020-07-28] MEDS: DIPHENHYDRAMINE 50MG/ML VIAL IV PRN ×2 (01:32→23:17)
[2020-07-28 04:00] VITALS: BP 134/97
[2020-07-28] MEDS: GABAPENTIN 100MG CAPSULE PO SCH ×3 (06:00→21:53)
[2020-07-28] MEDS: LACTULOSE 20G/30ML UDC PO SCH ×3 (06:49→21:54)
[2020-07-28] MEDS: SUCRALFATE 1 G/10 ML UDC PO SCH ×4 (06:49→21:36)
[2020-07-28] MEDS: HYDROCODONE/ACETAMINOPHEN 5/325MG TABLET PO PRN ×3 (06:50→19:55)
[2020-07-28] MEDS: METOCLOPRAMIDE HCL 5MG TABLET PO SCH ×4 (06:50→23:16)
[2020-07-28 08:00] VITALS: BP 161/95
[2020-07-28] MEDS: PANTOPRAZOLE 40MG DR TABLET PO SCH ×2 (08:30→21:47)
[2020-07-28] MEDS: AMLODIPINE 5MG TABLET PO SCH ×2 (08:31→21:52)
[2020-07-28] MEDS: POLYETHYLENE GLYCOL 3350 (17GM) 1 DOSE PACK PO SCH (08:31)
[2020-07-28] MEDS: LISINOPRIL 10MG TABLET PO SCH ×2 (08:31→21:37)
[2020-07-28] MEDS: ONDANSETRON HCL 4MG/2ML INJ IV PRN ×3 (08:41→18:15)
[2020-07-28 12:00] VITALS: BP 135/89
[2020-07-28 16:00] VITALS: BP 134/80
[2020-07-28 20:00] VITALS: BP 139/78
[2020-07-28] MEDS: SENNOSIDES/DOCUSATE SOD 8.6/50MG TABLET PO SCH (21:47)
[2020-07-29] VITALS: BP 158/80
[2020-07-29] MEDS: HYDROCODONE/ACETAMINOPHEN 5/325MG TABLET PO PRN ×4 (01:29→18:36)
[2020-07-29 04:00] VITALS: BP 120/70
[2020-07-29] MEDS: SUCRALFATE 1 G/10 ML UDC PO SCH ×4 (06:00→21:11)
[2020-07-29] MEDS: LACTULOSE 20G/30ML UDC PO SCH ×3 (06:02→21:12)
[2020-07-29] MEDS: GABAPENTIN 100MG CAPSULE PO SCH ×3 (06:03→21:11)
[2020-07-29] MEDS: METOCLOPRAMIDE HCL 5MG TABLET PO SCH ×3 (06:03→18:05)
[2020-07-29 08:00] VITALS: BP 110/62
[2020-07-29] MEDS: POLYETHYLENE GLYCOL 3350 (17GM) 1 DOSE PACK PO SCH (09:00)
[2020-07-29] MEDS: LISINOPRIL 10MG TABLET PO SCH ×2 (09:22→21:11)
[2020-07-29] MEDS: AMLODIPINE 5MG TABLET PO SCH ×2 (09:22→21:11)
[2020-07-29] MEDS: PANTOPRAZOLE 40MG DR TABLET PO SCH ×2 (09:22→21:11)
[2020-07-29 12:00] VITALS: BP 124/77
[2020-07-29] MEDS: ONDANSETRON HCL 4MG/2ML INJ IV PRN ×2 (12:20→21:12)
[2020-07-29 16:00] VITALS: BP 115/79
[2020-07-29 20:00] VITALS: BP 139/86
[2020-07-29] MEDS: SENNOSIDES/DOCUSATE SOD 8.6/50MG TABLET PO SCH (21:00)
[2020-07-30] VITALS: BP 110/52
[2020-07-30] MEDS: ACETAMINOPHEN 325MG TABLET PO PRN (00:01)
[2020-07-30] MEDS: METOCLOPRAMIDE HCL 5MG TABLET PO SCH ×4 (00:03→17:53)
[2020-07-30] MEDS: DIPHENHYDRAMINE 50MG/ML VIAL IV PRN (00:29)
[2020-07-30] MEDS: HYDROCODONE/ACETAMINOPHEN 5/325MG TABLET PO PRN ×4 (02:30→21:26)
[2020-07-30 04:00] VITALS: BP 148/81
[2020-07-30] MEDS: LACTULOSE 20G/30ML UDC PO SCH ×3 (06:00→21:28)
[2020-07-30] MEDS: GABAPENTIN 100MG CAPSULE PO SCH ×3 (06:00→21:25)
[2020-07-30] MEDS: SUCRALFATE 1 G/10 ML UDC PO SCH ×4 (06:28→21:00)
[2020-07-30 08:00] VITALS: BP 116/67
[2020-07-30] MEDS: POLYETHYLENE GLYCOL 3350 (17GM) 1 DOSE PACK PO SCH (08:30)
[2020-07-30] MEDS: AMLODIPINE 5MG TABLET PO SCH ×2 (08:35→21:24)
[2020-07-30] MEDS: PANTOPRAZOLE 40MG DR TABLET PO SCH ×2 (08:35→21:25)
[2020-07-30] MEDS: LISINOPRIL 10MG TABLET PO SCH ×2 (08:42→21:25)
[2020-07-30 12:00] VITALS: BP 108/53
[2020-07-30 16:00] VITALS: BP 126/78
[2020-07-30] MEDS: ONDANSETRON HCL 4MG/2ML INJ IV PRN (16:12)
[2020-07-30 20:00] VITALS: BP 136/82
[2020-07-30] MEDS: SENNOSIDES/DOCUSATE SOD 8.6/50MG TABLET PO SCH (21:25)
[2020-07-30] MEDS: CLONIDINE 0.2MG TABLET PO PRN (21:52)
[2020-07-30] MEDS ORDERED: DICYCLOMINE HCL 10MG CAPSULE PO SCH (22:15)
[2020-07-30] MEDS ORDERED: BENTYL PO NR (23:00)
[2020-07-30] MEDS ORDERED: [UNRECOGNIZED DRUG - OTHER] PO NR (23:00)
[2020-07-31] VITALS: BP 135/83
[2020-07-31] MEDS: METOCLOPRAMIDE HCL 5MG TABLET PO SCH ×5 (00:30→23:56)
[2020-07-31] MEDS: DIPHENHYDRAMINE 50MG/ML VIAL IV PRN (00:48)
[2020-07-31] MEDS: HYDROCODONE/ACETAMINOPHEN 5/325MG TABLET PO PRN ×4 (03:32→23:10)
[2020-07-31 04:00] VITALS: BP 150/88
[2020-07-31] MEDS: ONDANSETRON HCL 4MG/2ML INJ IV PRN ×2 (05:27→18:59)
[2020-07-31] MEDS: LACTULOSE 20G/30ML UDC PO SCH ×3 (06:00→21:24)
[2020-07-31] MEDS: GABAPENTIN 100MG CAPSULE PO SCH ×3 (06:37→21:27)
[2020-07-31] MEDS: SUCRALFATE 1 G/10 ML UDC PO SCH ×4 (06:38→21:21)
[2020-07-31 08:00] VITALS: BP 148/85
[2020-07-31] MEDS: POLYETHYLENE GLYCOL 3350 (17GM) 1 DOSE PACK PO SCH (09:18)
[2020-07-31] MEDS: PANTOPRAZOLE 40MG DR TABLET PO SCH ×2 (09:18→21:23)
[2020-07-31] MEDS: AMLODIPINE 5MG TABLET PO SCH ×2 (09:19→21:23)
[2020-07-31] MEDS: LISINOPRIL 10MG TABLET PO SCH ×2 (09:25→21:23)
[2020-07-31 12:00] VITALS: BP 125/59
[2020-07-31 16:00] VITALS: BP 122/71
[2020-07-31 20:00] VITALS: BP 117/79
[2020-07-31] MEDS: SENNOSIDES/DOCUSATE SOD 8.6/50MG TABLET PO SCH (21:00)
[2020-07-31] MEDS: LORAZEPAM 1MG TABLET PO PRN (21:23)
[2020-08-01] VITALS: BP 142/82
[2020-08-01] MEDS: DIPHENHYDRAMINE 50MG/ML VIAL IV PRN (01:47)
[2020-08-01 04:00] VITALS: BP 151/91
[2020-08-01] MEDS: LACTULOSE 20G/30ML UDC PO SCH ×3 (05:10→21:20)
[2020-08-01] MEDS: GABAPENTIN 100MG CAPSULE PO SCH ×3 (05:14→21:22)
[2020-08-01] MEDS: HYDROCODONE/ACETAMINOPHEN 5/325MG TABLET PO PRN ×3 (05:16→21:17)
[2020-08-01] MEDS: METOCLOPRAMIDE HCL 5MG TABLET PO SCH ×3 (05:17→18:06)
[2020-08-01] MEDS: SUCRALFATE 1 G/10 ML UDC PO SCH ×4 (06:22→21:19)
[2020-08-01] MEDS: LORAZEPAM 1MG TABLET PO PRN ×2 (06:26→16:31)
[2020-08-01 08:00] VITALS: BP 152/70
[2020-08-01] MEDS: POLYETHYLENE GLYCOL 3350 (17GM) 1 DOSE PACK PO SCH (09:00)
[2020-08-01] MEDS: AMLODIPINE 5MG TABLET PO SCH ×2 (09:01→21:19)
[2020-08-01] MEDS: PANTOPRAZOLE 40MG DR TABLET PO SCH ×2 (09:01→21:18)
[2020-08-01] MEDS: LISINOPRIL 10MG TABLET PO SCH ×2 (09:01→21:19)
[2020-08-01 12:00] VITALS: BP 99/70
[2020-08-01] MEDS: ONDANSETRON HCL 4MG/2ML INJ IV PRN (13:01)
[2020-08-01 16:00] VITALS: BP 104/59
[2020-08-01 20:00] VITALS: BP 115/69
[2020-08-01] MEDS: SENNOSIDES/DOCUSATE SOD 8.6/50MG TABLET PO SCH (21:00)
[2020-08-01] MEDS: TEMAZEPAM 15MG CAPSULE PO PRN (21:18)
[2020-08-01] MEDS: RISPERIDONE 1MG TABLET PO SCH (21:19)
[2020-08-01] MEDS: TRAZODONE HCL 50MG TABLET PO SCH (21:22)
[2020-08-02] VITALS: BP 108/73
[2020-08-02] MEDS: LORAZEPAM 1MG TABLET PO PRN ×2 (00:59→10:55)
[2020-08-02] MEDS: METOCLOPRAMIDE HCL 5MG TABLET PO SCH ×5 (00:59→23:11)
[2020-08-02] MEDS: HYDROCODONE/ACETAMINOPHEN 5/325MG TABLET PO PRN ×4 (03:22→23:11)
[2020-08-02 04:00] VITALS: BP 129/80
[2020-08-02] MEDS: LACTULOSE 20G/30ML UDC PO SCH ×3 (06:00→21:59)
[2020-08-02] MEDS: GABAPENTIN 100MG CAPSULE PO SCH ×3 (06:58→21:58)
[2020-08-02] MEDS: SUCRALFATE 1 G/10 ML UDC PO SCH ×5 (06:58→21:59)
[2020-08-02 08:00] VITALS: BP 106/69
[2020-08-02] MEDS: POLYETHYLENE GLYCOL 3350 (17GM) 1 DOSE PACK PO SCH (09:36)
[2020-08-02] MEDS: PANTOPRAZOLE 40MG DR TABLET PO SCH ×2 (09:40→21:57)
[2020-08-02] MEDS: AMLODIPINE 5MG TABLET PO SCH ×2 (09:40→21:58)
[2020-08-02] MEDS: RISPERIDONE 1MG TABLET PO SCH ×2 (09:41→21:58)
[2020-08-02] MEDS: LISINOPRIL 10MG TABLET PO SCH ×2 (09:42→21:59)
[2020-08-02 12:00] VITALS: BP 106/61
[2020-08-02 16:00] VITALS: BP 123/74
[2020-08-02] MEDS: MAGNESIUM/ALUMINUM HYDROXIDE/SIMETHICONE 30ML UDC PO PRN (17:50)
[2020-08-02 20:00] VITALS: BP 119/76
[2020-08-02] MEDS: TEMAZEPAM 15MG CAPSULE PO PRN (21:57)
[2020-08-02] MEDS: SENNOSIDES/DOCUSATE SOD 8.6/50MG TABLET PO SCH (21:58)
[2020-08-02] MEDS: TRAZODONE HCL 50MG TABLET PO SCH (21:58)
[2020-08-03] VITALS: BP 124/82
[2020-08-03] MEDS: LORAZEPAM 1MG TABLET PO PRN ×3 (01:19→22:20)
[2020-08-03 04:00] VITALS: BP 111/64
[2020-08-03] MEDS: LACTULOSE 20G/30ML UDC PO SCH ×3 (06:00→21:09)
[2020-08-03] MEDS: GABAPENTIN 100MG CAPSULE PO SCH ×3 (06:22→21:10)
[2020-08-03] MEDS: METOCLOPRAMIDE HCL 5MG TABLET PO SCH ×3 (06:22→18:27)
[2020-08-03] MEDS: HYDROCODONE/ACETAMINOPHEN 5/325MG TABLET PO PRN ×2 (06:23→16:53)
[2020-08-03] MEDS: SUCRALFATE 1 G/10 ML UDC PO SCH ×4 (07:20→20:33)
[2020-08-03 08:00] VITALS: BP 102/64
[2020-08-03] MEDS: AMLODIPINE 5MG TABLET PO SCH ×2 (09:00→20:34)
[2020-08-03] MEDS: POLYETHYLENE GLYCOL 3350 (17GM) 1 DOSE PACK PO SCH ×3 (09:00→20:37)
[2020-08-03] MEDS: LISINOPRIL 10MG TABLET PO SCH ×2 (09:00→20:35)
[2020-08-03] MEDS: PANTOPRAZOLE 40MG DR TABLET PO SCH ×2 (09:54→20:34)
[2020-08-03] MEDS: RISPERIDONE 1MG TABLET PO SCH ×2 (09:54→20:35)
[2020-08-03] MEDS ORDERED: BISACODYL 10MG SUPP PR PRN (11:30)
[2020-08-03 12:00] VITALS: BP 97/65
[2020-08-03 16:00] VITALS: BP 118/76
[2020-08-03] MEDS ORDERED: NA PHOS,M-B/NA PHOS,DI-BA ENEMA 118ML PR NR (19:15)
[2020-08-03 20:00] VITALS: BP 120/74
[2020-08-03] MEDS: TRAZODONE HCL 50MG TABLET PO SCH (20:33)
[2020-08-03] MEDS: SENNOSIDES/DOCUSATE SOD 8.6/50MG TABLET PO SCH (20:36)
[2020-08-04] VITALS: BP 136/78
[2020-08-04] MEDS: METOCLOPRAMIDE HCL 5MG TABLET PO SCH ×4 (00:14→17:21)
[2020-08-04 04:00] VITALS: BP 147/77
[2020-08-04] MEDS: ACETAMINOPHEN 325MG TABLET PO PRN (04:52)
[2020-08-04] MEDS: SUCRALFATE 1 G/10 ML UDC PO SCH ×4 (06:34→21:00)
[2020-08-04] MEDS: LACTULOSE 20G/30ML UDC PO SCH ×3 (06:34→21:03)
[2020-08-04] MEDS: LORAZEPAM 1MG TABLET PO PRN ×2 (06:35→15:57)
[2020-08-04] MEDS: GABAPENTIN 100MG CAPSULE PO SCH ×3 (06:35→21:01)
[2020-08-04 08:00] VITALS: BP 144/77
[2020-08-04] MEDS: POLYETHYLENE GLYCOL 3350 (17GM) 1 DOSE PACK PO SCH ×2 (09:00→17:00)
[2020-08-04] MEDS: AMLODIPINE 5MG TABLET PO SCH ×2 (09:47→21:02)
[2020-08-04] MEDS: LISINOPRIL 10MG TABLET PO SCH ×2 (09:48→21:01)
[2020-08-04] MEDS: PANTOPRAZOLE 40MG DR TABLET PO SCH ×2 (09:48→21:00)
[2020-08-04] MEDS: RISPERIDONE 1MG TABLET PO SCH ×2 (09:48→21:00)
[2020-08-04 11:42] LABS: BASOPHILS % 0.8 % (0.0-2.0); EOSINOPHILS % 1.6 % (0.0-5.0); HEMATOCRIT. 36.1 % (36.0-48.0); HEMOGLOBIN. 11.6 g/dL (12.0-16.0); LYMPHOCYTES % 20.9 % (20.0-50.0); MEAN CORPUSCULAR HEMOGLOBIN 30.5 pg (28.0-32.0); MEAN CORPUSCULAR VOLUME 94.8 fL (81.0-99.0); MEAN PLATELET VOLUME 7.6 fl (7.4-10.4); MONOCYTES % 6.6 % (2.0-8.0); NEUTROPHILS % 70.1 % (40.0-76.0); PLATELET 578 x1000/uL (130-400); RED BLOOD CELL COUNT 3.81 mill/uL (4.2-5.4); RED CELL DISTRIBUTION WIDTH 19.3 % (11.6-14.6)
[2020-08-04 11:52] LABS: CHLORIDE 106 mEq/L (98-107)
[2020-08-04 12:00] VITALS: BP 107/72
[2020-08-04 16:00] VITALS: BP 144/78
[2020-08-04] MEDS: HYDROCODONE/ACETAMINOPHEN 5/325MG TABLET PO PRN (17:21)
[2020-08-04 20:00] VITALS: BP 90/47
[2020-08-04] MEDS: SENNOSIDES/DOCUSATE SOD 8.6/50MG TABLET PO SCH (21:00)
[2020-08-04] MEDS: TRAZODONE HCL 50MG TABLET PO SCH (21:00)
[2020-08-05] VITALS: BP 154/54
[2020-08-05] MEDS: METOCLOPRAMIDE HCL 5MG TABLET PO SCH ×5 (00:27→23:12)
[2020-08-05] MEDS: ACETAMINOPHEN 325MG TABLET PO PRN (00:27)
[2020-08-05 04:00] VITALS: BP 120/56
[2020-08-05] MEDS: GABAPENTIN 100MG CAPSULE PO SCH ×3 (05:14→21:36)
[2020-08-05] MEDS: LACTULOSE 20G/30ML UDC PO SCH ×3 (05:15→21:36)
[2020-08-05] MEDS: LORAZEPAM 1MG TABLET PO PRN (05:18)
[2020-08-05 08:00] VITALS: BP 156/94
[2020-08-05] MEDS: AMLODIPINE 5MG TABLET PO SCH ×2 (09:15→21:00)
[2020-08-05] MEDS: RISPERIDONE 1MG TABLET PO SCH ×2 (09:15→21:36)
[2020-08-05] MEDS: POLYETHYLENE GLYCOL 3350 (17GM) 1 DOSE PACK PO SCH ×2 (09:15→17:45)
[2020-08-05] MEDS: SUCRALFATE 1 G/10 ML UDC PO SCH ×4 (09:15→21:36)
[2020-08-05] MEDS: PANTOPRAZOLE 40MG DR TABLET PO SCH ×2 (09:16→21:37)
[2020-08-05] MEDS: LISINOPRIL 10MG TABLET PO SCH ×2 (09:16→21:00)
[2020-08-05 12:00] VITALS: BP 144/87
[2020-08-05 16:00] VITALS: BP 109/80
[2020-08-05] MEDS: HYDROCODONE/ACETAMINOPHEN 5/325MG TABLET PO PRN (17:44)
[2020-08-05 20:00] VITALS: BP 94/70
[2020-08-05] MEDS: NA PHOS,M-B/NA PHOS,DI-BA ENEMA 118ML PR PRN (20:16)
[2020-08-05] MEDS: TRAZODONE HCL 50MG TABLET PO SCH (21:36)
[2020-08-05] MEDS: SENNOSIDES/DOCUSATE SOD 8.6/50MG TABLET PO SCH (21:36)
[2020-08-06] VITALS: BP 121/77
[2020-08-06] MEDS: LORAZEPAM 1MG TABLET PO PRN ×2 (00:12→08:42)
[2020-08-06] MEDS: ACETAMINOPHEN 325MG TABLET PO PRN (03:05)
[2020-08-06 04:00] VITALS: BP 126/71
[2020-08-06] MEDS: GABAPENTIN 100MG CAPSULE PO SCH ×4 (06:00→21:09)
[2020-08-06] MEDS: METOCLOPRAMIDE HCL 5MG TABLET PO SCH ×3 (06:15→17:14)
[2020-08-06] MEDS: LACTULOSE 20G/30ML UDC PO SCH ×3 (06:15→21:08)
[2020-08-06] MEDS: SUCRALFATE 1 G/10 ML UDC PO SCH ×4 (06:16→21:08)
[2020-08-06 08:00] VITALS: BP 100/70
[2020-08-06] MEDS: RISPERIDONE 1MG TABLET PO SCH ×2 (08:43→21:09)
[2020-08-06] MEDS: PANTOPRAZOLE 40MG DR TABLET PO SCH ×2 (08:43→21:09)
[2020-08-06] MEDS: POLYETHYLENE GLYCOL 3350 (17GM) 1 DOSE PACK PO SCH ×2 (08:43→17:14)
[2020-08-06] MEDS: AMLODIPINE 5MG TABLET PO SCH ×2 (08:43→21:00)
[2020-08-06] MEDS: LISINOPRIL 10MG TABLET PO SCH ×2 (08:44→21:00)
[2020-08-06 12:00] VITALS: BP 92/64
[2020-08-06] MEDS: HYDROCODONE/ACETAMINOPHEN 5/325MG TABLET PO PRN (18:20)
[2020-08-06 20:00] VITALS: BP 108/69
[2020-08-06] MEDS: SENNOSIDES/DOCUSATE SOD 8.6/50MG TABLET PO SCH (21:09)
[2020-08-06] MEDS: TRAZODONE HCL 50MG TABLET PO SCH (21:09)
[2020-08-07 00:05] VITALS: BP 142/71
[2020-08-07 04:00] VITALS: BP 117/61
[2020-08-07] MEDS: LACTULOSE 20G/30ML UDC PO SCH ×3 (06:21→21:45)
[2020-08-07] MEDS: SUCRALFATE 1 G/10 ML UDC PO SCH ×4 (06:21→21:45)
[2020-08-07] MEDS: GABAPENTIN 100MG CAPSULE PO SCH ×3 (06:22→21:45)
[2020-08-07] MEDS: METOCLOPRAMIDE HCL 5MG TABLET PO SCH ×5 (06:22→23:41)
[2020-08-07] MEDS: LORAZEPAM 1MG TABLET PO PRN ×3 (07:08→23:41)
[2020-08-07] MEDS: PANTOPRAZOLE 40MG DR TABLET PO SCH ×2 (08:52→21:45)
[2020-08-07] MEDS: AMLODIPINE 5MG TABLET PO SCH ×2 (08:52→21:00)
[2020-08-07] MEDS: RISPERIDONE 1MG TABLET PO SCH ×2 (08:52→21:45)
[2020-08-07] MEDS: LISINOPRIL 10MG TABLET PO SCH ×2 (08:53→21:00)
[2020-08-07] MEDS: POLYETHYLENE GLYCOL 3350 (17GM) 1 DOSE PACK PO SCH ×2 (08:56→17:43)
[2020-08-07] MEDS: HYDROCODONE/ACETAMINOPHEN 5/325MG TABLET PO PRN (18:05)
[2020-08-07 20:00] VITALS: BP 108/53
[2020-08-07] MEDS: SENNOSIDES/DOCUSATE SOD 8.6/50MG TABLET PO SCH (21:45)
[2020-08-07] MEDS: TRAZODONE HCL 50MG TABLET PO SCH (21:46)
[2020-08-08] VITALS: BP 120/60
[2020-08-08 04:00] VITALS: BP 133/74
[2020-08-08] MEDS: LACTULOSE 20G/30ML UDC PO SCH ×3 (06:36→22:00)
[2020-08-08] MEDS: GABAPENTIN 100MG CAPSULE PO SCH ×3 (06:36→22:08)
[2020-08-08] MEDS: METOCLOPRAMIDE HCL 5MG TABLET PO SCH ×4 (06:36→23:52)
[2020-08-08] MEDS: SUCRALFATE 1 G/10 ML UDC PO SCH ×4 (06:36→21:00)
[2020-08-08 08:00] VITALS: BP 137/62
[2020-08-08] MEDS: POLYETHYLENE GLYCOL 3350 (17GM) 1 DOSE PACK PO SCH ×2 (09:00→17:00)
[2020-08-08] MEDS: LORAZEPAM 1MG TABLET PO PRN ×2 (09:05→18:20)
[2020-08-08] MEDS: PANTOPRAZOLE 40MG DR TABLET PO SCH ×2 (09:05→22:07)
[2020-08-08] MEDS: RISPERIDONE 1MG TABLET PO SCH ×2 (09:05→22:07)
[2020-08-08] MEDS: AMLODIPINE 5MG TABLET PO SCH ×2 (09:06→21:00)
[2020-08-08] MEDS: LISINOPRIL 10MG TABLET PO SCH ×2 (09:06→21:00)
[2020-08-08 12:00] VITALS: BP 131/88
[2020-08-08] MEDS: NA PHOS,M-B/NA PHOS,DI-BA ENEMA 118ML PR PRN (14:02)
[2020-08-08 16:00] VITALS: BP 128/69
[2020-08-08] MEDS: HYDROCODONE/ACETAMINOPHEN 5/325MG TABLET PO PRN (18:21)
[2020-08-08 20:00] VITALS: BP 98/50
[2020-08-08] MEDS: TRAZODONE HCL 50MG TABLET PO SCH (22:08)
[2020-08-08] MEDS: SENNOSIDES/DOCUSATE SOD 8.6/50MG TABLET PO SCH (22:08)
[2020-08-08] MEDS: ACETAMINOPHEN 325MG TABLET PO PRN (23:52)
[2020-08-09] VITALS: BP 100/65
[2020-08-09] MEDS: LORAZEPAM 1MG TABLET PO PRN ×2 (03:07→12:33)
[2020-08-09 04:00] VITALS: BP 125/89
[2020-08-09] MEDS: GABAPENTIN 100MG CAPSULE PO SCH ×3 (06:48→22:30)
[2020-08-09] MEDS: METOCLOPRAMIDE HCL 5MG TABLET PO SCH ×3 (06:48→17:27)
[2020-08-09 08:00] VITALS: BP 167/100
[2020-08-09] MEDS: POLYETHYLENE GLYCOL 3350 (17GM) 1 DOSE PACK PO SCH ×2 (09:00→17:00)
[2020-08-09] MEDS: LISINOPRIL 10MG TABLET PO SCH ×2 (09:04→22:30)
[2020-08-09] MEDS: PANTOPRAZOLE 40MG DR TABLET PO SCH ×2 (09:04→22:29)
[2020-08-09] MEDS: SUCRALFATE 1 G/10 ML UDC PO SCH ×4 (09:04→21:00)
[2020-08-09] MEDS: RISPERIDONE 1MG TABLET PO SCH ×2 (09:05→22:30)
[2020-08-09] MEDS: CLONIDINE 0.2MG TABLET PO PRN (09:05)
[2020-08-09] MEDS: AMLODIPINE 5MG TABLET PO SCH ×2 (09:05→22:29)
[2020-08-09 12:00] VITALS: BP 107/75
[2020-08-09] MEDS: LACTULOSE 20G/30ML UDC PO SCH ×2 (14:00→22:00)
[2020-08-09 16:22] VITALS: BP 96/57
[2020-08-09 20:00] VITALS: BP 93/50
[2020-08-09] MEDS: TRAZODONE HCL 50MG TABLET PO SCH (22:29)
[2020-08-09] MEDS: SENNOSIDES/DOCUSATE SOD 8.6/50MG TABLET PO SCH (22:30)
[2020-08-09] MEDS: HYDROCODONE/ACETAMINOPHEN 5/325MG TABLET PO PRN (22:31)
[2020-08-10] VITALS: BP 110/74
[2020-08-10] MEDS: LORAZEPAM 1MG TABLET PO PRN ×3 (00:02→18:14)
[2020-08-10] MEDS: METOCLOPRAMIDE HCL 5MG TABLET PO SCH ×4 (00:02→18:14)
[2020-08-10 04:00] VITALS: BP 110/72
[2020-08-10] MEDS: LACTULOSE 20G/30ML UDC PO SCH ×3 (05:54→21:16)
[2020-08-10] MEDS: GABAPENTIN 100MG CAPSULE PO SCH ×3 (05:54→22:06)
[2020-08-10] MEDS: SUCRALFATE 1 G/10 ML UDC PO SCH ×4 (07:20→21:15)
[2020-08-10 08:00] VITALS: BP 96/56
[2020-08-10] MEDS: POLYETHYLENE GLYCOL 3350 (17GM) 1 DOSE PACK PO SCH ×2 (09:00→17:00)
[2020-08-10] MEDS: AMLODIPINE 5MG TABLET PO SCH ×2 (09:00→21:18)
[2020-08-10] MEDS: LISINOPRIL 10MG TABLET PO SCH ×2 (09:00→21:28)
[2020-08-10] MEDS: RISPERIDONE 1MG TABLET PO SCH ×2 (09:04→21:19)
[2020-08-10] MEDS: PANTOPRAZOLE 40MG DR TABLET PO SCH ×2 (09:04→21:19)
[2020-08-10 12:00] VITALS: BP 86/48
[2020-08-10 20:00] VITALS: BP 117/76
[2020-08-10] MEDS: SENNOSIDES/DOCUSATE SOD 8.6/50MG TABLET PO SCH (21:16)
[2020-08-10] MEDS: TRAZODONE HCL 50MG TABLET PO SCH (21:19)
[2020-08-10] MEDS: HYDROCODONE/ACETAMINOPHEN 5/325MG TABLET PO PRN (22:07)
[2020-08-11] VITALS: BP 140/87
[2020-08-11] MEDS: LORAZEPAM 1MG TABLET PO PRN ×2 (02:09→11:16)
[2020-08-11 04:00] VITALS: BP 128/71
[2020-08-11] MEDS: LACTULOSE 20G/30ML UDC PO SCH ×3 (05:57→23:38)
[2020-08-11] MEDS: ACETAMINOPHEN 325MG TABLET PO PRN (05:58)
[2020-08-11] MEDS: METOCLOPRAMIDE HCL 5MG TABLET PO SCH ×5 (05:58→23:41)
[2020-08-11] MEDS: GABAPENTIN 100MG CAPSULE PO SCH ×3 (06:02→23:38)
[2020-08-11] MEDS: SUCRALFATE 1 G/10 ML UDC PO SCH ×4 (06:52→21:00)
[2020-08-11 08:00] VITALS: BP 149/80
[2020-08-11] MEDS: POLYETHYLENE GLYCOL 3350 (17GM) 1 DOSE PACK PO SCH ×2 (08:45→17:38)
[2020-08-11] MEDS: RISPERIDONE 1MG TABLET PO SCH ×2 (08:45→23:40)
[2020-08-11] MEDS: AMLODIPINE 5MG TABLET PO SCH ×2 (08:45→23:42)
[2020-08-11] MEDS: LISINOPRIL 10MG TABLET PO SCH ×2 (08:45→23:43)
[2020-08-11] MEDS: PANTOPRAZOLE 40MG DR TABLET PO SCH ×2 (08:45→23:38)
[2020-08-11 12:00] VITALS: BP 90/52
[2020-08-11] MEDS: SENNOSIDES/DOCUSATE SOD 8.6/50MG TABLET PO SCH (23:39)
[2020-08-11] MEDS: TRAZODONE HCL 50MG TABLET PO SCH (23:41)
[2020-08-11] MEDS: HYDROCODONE/ACETAMINOPHEN 5/325MG TABLET PO PRN (23:44)
[2020-08-12] MEDS: LORAZEPAM 1MG TABLET PO PRN ×2 (00:49→13:07)
[2020-08-12] MEDS: LACTULOSE 20G/30ML UDC PO SCH ×3 (05:22→21:56)
[2020-08-12] MEDS: GABAPENTIN 100MG CAPSULE PO SCH ×3 (05:23→21:56)
[2020-08-12] MEDS: METOCLOPRAMIDE HCL 5MG TABLET PO SCH ×3 (05:52→18:44)
[2020-08-12] MEDS: SUCRALFATE 1 G/10 ML UDC PO SCH (07:20)
[2020-08-12 08:00] VITALS: BP 83/53
[2020-08-12] MEDS: AMLODIPINE 5MG TABLET PO SCH ×2 (09:00→21:57)
[2020-08-12] MEDS: LISINOPRIL 10MG TABLET PO SCH ×2 (09:00→21:56)
[2020-08-12] MEDS: PANTOPRAZOLE 40MG DR TABLET PO SCH ×2 (10:44→21:56)
[2020-08-12] MEDS: RISPERIDONE 1MG TABLET PO SCH ×2 (10:44→21:56)
[2020-08-12] MEDS: POLYETHYLENE GLYCOL 3350 (17GM) 1 DOSE PACK PO SCH ×2 (10:45→18:44)
[2020-08-12 12:00] VITALS: BP 104/65
[2020-08-12 16:00] VITALS: BP 121/64
[2020-08-12] MEDS ORDERED: ONDANSETRON HCL 4MG/2ML INJ IV PRN (17:00)
[2020-08-12 20:00] VITALS: BP 131/77
[2020-08-12] MEDS: SENNOSIDES/DOCUSATE SOD 8.6/50MG TABLET PO SCH (21:56)
[2020-08-12] MEDS: ACETAMINOPHEN 325MG TABLET PO PRN (21:57)
[2020-08-12] MEDS: TRAZODONE HCL 50MG TABLET PO SCH (22:00)
[2020-08-13 04:00] VITALS: BP 128/77
[2020-08-13] MEDS: LACTULOSE 20G/30ML UDC PO SCH ×3 (05:40→21:31)
[2020-08-13] MEDS: GABAPENTIN 100MG CAPSULE PO SCH ×3 (05:40→21:30)
[2020-08-13] MEDS: METOCLOPRAMIDE HCL 5MG TABLET PO SCH ×5 (06:00→23:02)
[2020-08-13 08:00] VITALS: BP 137/77
[2020-08-13] MEDS: LISINOPRIL 10MG TABLET PO SCH ×2 (09:00→21:30)
[2020-08-13] MEDS: AMLODIPINE 5MG TABLET PO SCH ×2 (09:00→21:30)
[2020-08-13] MEDS: POLYETHYLENE GLYCOL 3350 (17GM) 1 DOSE PACK PO SCH ×2 (09:00→17:00)
[2020-08-13] MEDS: PANTOPRAZOLE 40MG DR TABLET PO SCH ×2 (09:00→21:30)
[2020-08-13] MEDS: RISPERIDONE 1MG TABLET PO SCH ×2 (09:08→21:30)
[2020-08-13 12:00] VITALS: BP 118/66
[2020-08-13 16:00] VITALS: BP 131/103
[2020-08-13 20:00] VITALS: BP 101/62
[2020-08-13] MEDS: TRAZODONE HCL 50MG TABLET PO SCH (21:30)
[2020-08-13] MEDS: SENNOSIDES/DOCUSATE SOD 8.6/50MG TABLET PO SCH (21:30)
[2020-08-14] VITALS: BP 170/95
[2020-08-14] MEDS: CLONIDINE 0.2MG TABLET PO PRN (01:54)
[2020-08-14 04:00] VITALS: BP 130/82
[2020-08-14] MEDS: GABAPENTIN 100MG CAPSULE PO SCH ×3 (05:36→21:35)
[2020-08-14] MEDS: LACTULOSE 20G/30ML UDC PO SCH ×3 (05:36→21:38)
[2020-08-14] MEDS: METOCLOPRAMIDE HCL 5MG TABLET PO SCH ×4 (05:38→23:08)
[2020-08-14 08:00] VITALS: BP 98/61
[2020-08-14] MEDS: AMLODIPINE 5MG TABLET PO SCH ×2 (08:54→21:00)
[2020-08-14] MEDS: LISINOPRIL 10MG TABLET PO SCH ×2 (09:00→21:00)
[2020-08-14] MEDS: POLYETHYLENE GLYCOL 3350 (17GM) 1 DOSE PACK PO SCH ×2 (09:00→17:00)
[2020-08-14] MEDS: PANTOPRAZOLE 40MG DR TABLET PO SCH ×2 (09:00→21:36)
[2020-08-14] MEDS: RISPERIDONE 1MG TABLET PO SCH ×2 (09:07→21:37)
[2020-08-14 12:00] VITALS: BP 89/61
[2020-08-14 16:00] VITALS: BP 92/47
[2020-08-14 20:00] VITALS: BP 92/50
[2020-08-14] MEDS: SENNOSIDES/DOCUSATE SOD 8.6/50MG TABLET PO SCH (21:35)
[2020-08-14] MEDS: ZOLPIDEM TARTRATE 5MG TABLET PO PRN (21:36)
[2020-08-14] MEDS: TRAZODONE HCL 50MG TABLET PO SCH (21:38)
[2020-08-15] VITALS: BP 94/59
[2020-08-15] MEDS: GABAPENTIN 100MG CAPSULE PO SCH ×3 (05:51→21:43)
[2020-08-15] MEDS: METOCLOPRAMIDE HCL 5MG TABLET PO SCH ×3 (05:51→17:09)
[2020-08-15] MEDS: LACTULOSE 20G/30ML UDC PO SCH ×3 (06:00→21:43)
[2020-08-15 08:00] VITALS: BP 98/72
[2020-08-15] MEDS: POLYETHYLENE GLYCOL 3350 (17GM) 1 DOSE PACK PO SCH ×2 (08:42→16:50)
[2020-08-15] MEDS: AMLODIPINE 5MG TABLET PO SCH ×2 (08:43→21:45)
[2020-08-15] MEDS: LISINOPRIL 10MG TABLET PO SCH ×2 (08:45→21:45)
[2020-08-15] MEDS: PANTOPRAZOLE 40MG DR TABLET PO SCH ×2 (08:45→21:43)
[2020-08-15] MEDS: RISPERIDONE 1MG TABLET PO SCH ×2 (08:45→21:43)
[2020-08-15] MEDS: ACETAMINOPHEN 325MG TABLET PO PRN ×2 (08:47→15:25)
[2020-08-15 12:00] VITALS: BP 126/69
[2020-08-15 16:00] VITALS: BP 113/68
[2020-08-15 20:00] VITALS: BP 93/60
[2020-08-15] MEDS: SENNOSIDES/DOCUSATE SOD 8.6/50MG TABLET PO SCH (21:00)
[2020-08-15] MEDS: TRAZODONE HCL 50MG TABLET PO SCH (21:43)
[2020-08-15] MEDS: ZOLPIDEM TARTRATE 5MG TABLET PO PRN (22:50)
[2020-08-16 00:04] VITALS: BP 155/100
[2020-08-16] MEDS: METOCLOPRAMIDE HCL 5MG TABLET PO SCH ×4 (00:29→18:02)
[2020-08-16 04:00] VITALS: BP 144/75
[2020-08-16] MEDS: LACTULOSE 20G/30ML UDC PO SCH ×3 (06:00→21:27)
[2020-08-16] MEDS: GABAPENTIN 100MG CAPSULE PO SCH ×3 (06:36→21:32)
[2020-08-16 08:00] VITALS: BP 155/97
[2020-08-16] MEDS: POLYETHYLENE GLYCOL 3350 (17GM) 1 DOSE PACK PO SCH ×2 (08:51→16:02)
[2020-08-16] MEDS: PANTOPRAZOLE 40MG DR TABLET PO SCH ×2 (08:57→21:25)
[2020-08-16] MEDS: AMLODIPINE 5MG TABLET PO SCH ×2 (08:59→21:26)
[2020-08-16] MEDS: LISINOPRIL 10MG TABLET PO SCH (09:00)
[2020-08-16] MEDS: RISPERIDONE 1MG TABLET PO SCH ×2 (09:00→21:25)
[2020-08-16] MEDS: ACETAMINOPHEN 325MG TABLET PO PRN ×2 (09:01→21:27)
[2020-08-16 12:00] VITALS: BP 90/50
[2020-08-16 16:00] VITALS: BP 96/50
[2020-08-16 20:00] VITALS: BP 115/78
[2020-08-16] MEDS: SENNOSIDES/DOCUSATE SOD 8.6/50MG TABLET PO SCH (21:00)
[2020-08-16] MEDS: TRAZODONE HCL 50MG TABLET PO SCH (21:25)
[2020-08-16] MEDS: ZOLPIDEM TARTRATE 5MG TABLET PO PRN (21:26)
[2020-08-16] MEDS: LISINOPRIL 20MG TABLET PO SCH (21:26)
[2020-08-17] VITALS: BP 117/88
[2020-08-17] MEDS: METOCLOPRAMIDE HCL 5MG TABLET PO SCH ×5 (00:11→17:49)
[2020-08-17 04:00] VITALS: BP 121/76
[2020-08-17] MEDS: LACTULOSE 20G/30ML UDC PO SCH ×3 (05:10→21:50)
[2020-08-17] MEDS: GABAPENTIN 100MG CAPSULE PO SCH ×3 (05:11→21:53)
[2020-08-17 08:00] VITALS: BP 170/94
[2020-08-17] MEDS: RISPERIDONE 1MG TABLET PO SCH ×2 (08:29→21:49)
[2020-08-17] MEDS: PANTOPRAZOLE 40MG DR TABLET PO SCH ×2 (08:29→21:49)
[2020-08-17] MEDS: POLYETHYLENE GLYCOL 3350 (17GM) 1 DOSE PACK PO SCH ×2 (08:30→17:00)
[2020-08-17] MEDS: LISINOPRIL 20MG TABLET PO SCH ×2 (08:30→21:50)
[2020-08-17] MEDS: AMLODIPINE 5MG TABLET PO SCH ×2 (08:30→21:49)
[2020-08-17 12:00] VITALS: BP 120/76
[2020-08-17 20:00] VITALS: BP 130/82
[2020-08-17] MEDS: SENNOSIDES/DOCUSATE SOD 8.6/50MG TABLET PO SCH (21:00)
[2020-08-17] MEDS: ACETAMINOPHEN 325MG TABLET PO PRN (21:49)
[2020-08-17] MEDS: TRAZODONE HCL 50MG TABLET PO SCH (21:49)
[2020-08-18] VITALS: BP 114/80
[2020-08-18] MEDS: LACTULOSE 20G/30ML UDC PO SCH ×3 (06:00→22:00)
[2020-08-18] MEDS: METOCLOPRAMIDE HCL 5MG TABLET PO SCH ×4 (06:16→17:44)
[2020-08-18] MEDS: GABAPENTIN 100MG CAPSULE PO SCH ×3 (06:16→22:21)
[2020-08-18 08:00] VITALS: BP 118/72
[2020-08-18] MEDS: PANTOPRAZOLE 40MG DR TABLET PO SCH ×2 (08:42→22:20)
[2020-08-18] MEDS: AMLODIPINE 5MG TABLET PO SCH ×2 (08:43→21:00)
[2020-08-18] MEDS: POLYETHYLENE GLYCOL 3350 (17GM) 1 DOSE PACK PO SCH ×2 (08:43→17:00)
[2020-08-18] MEDS: RISPERIDONE 1MG TABLET PO SCH ×2 (08:43→21:00)
[2020-08-18] MEDS: LISINOPRIL 20MG TABLET PO SCH ×2 (08:43→21:00)
[2020-08-18 12:00] VITALS: BP 132/74
[2020-08-18 16:00] VITALS: BP 97/65
[2020-08-18] MEDS ORDERED: LORAZEPAM 2MG/ML CPJ IM PRN (19:45)
[2020-08-18 20:00] VITALS: BP 105/53
[2020-08-18] MEDS: SENNOSIDES/DOCUSATE SOD 8.6/50MG TABLET PO SCH (21:00)
[2020-08-18] MEDS: TRAZODONE HCL 50MG TABLET PO SCH (21:00)
[2020-08-19] VITALS: BP 150/82
[2020-08-19 04:00] VITALS: BP 144/85
[2020-08-19] MEDS: LACTULOSE 20G/30ML UDC PO SCH ×3 (06:00→22:00)
[2020-08-19] MEDS: GABAPENTIN 100MG CAPSULE PO SCH ×3 (06:44→22:07)
[2020-08-19 08:00] VITALS: BP 136/72
[2020-08-19] MEDS: POLYETHYLENE GLYCOL 3350 (17GM) 1 DOSE PACK PO SCH ×2 (09:00→17:00)
[2020-08-19] MEDS: AMLODIPINE 5MG TABLET PO SCH ×2 (09:11→20:22)
[2020-08-19] MEDS: PANTOPRAZOLE 40MG DR TABLET PO SCH ×2 (09:11→20:22)
[2020-08-19] MEDS: RISPERIDONE 1MG TABLET PO SCH ×2 (09:11→20:22)
[2020-08-19] MEDS: LISINOPRIL 20MG TABLET PO SCH ×2 (09:11→20:22)
[2020-08-19 12:00] VITALS: BP 104/64
[2020-08-19] MEDS ORDERED: LORAZEPAM 2MG/ML CPJ IM PRN (13:30)
[2020-08-19 20:00] VITALS: BP 126/76
[2020-08-19] MEDS: ACETAMINOPHEN 325MG TABLET PO PRN (20:22)
[2020-08-19] MEDS ORDERED: TUBERCULIN,PURIF.PROT.DERIV. 5 TU/0.1 ML SYR ID ONE (20:45)
[2020-08-19] MEDS: SENNOSIDES/DOCUSATE SOD 8.6/50MG TABLET PO SCH (21:00)
[2020-08-19] MEDS: TRAZODONE HCL 50MG TABLET PO SCH (22:07)
[2020-08-20] VITALS: BP 127/93
[2020-08-20 04:00] VITALS: BP 128/80
[2020-08-20] MEDS: ACETAMINOPHEN 325MG TABLET PO PRN ×3 (04:27→20:06)
[2020-08-20] MEDS: GABAPENTIN 100MG CAPSULE PO SCH ×3 (05:07→21:15)
[2020-08-20] MEDS ORDERED: TUBERCULIN,PURIF.PROT.DERIV. 5 TU/0.1 ML SYR ID ONE (05:45)
[2020-08-20] MEDS: LACTULOSE 20G/30ML UDC PO SCH ×3 (06:00→21:15)
[2020-08-20 08:00] VITALS: BP 135/85
[2020-08-20] MEDS: POLYETHYLENE GLYCOL 3350 (17GM) 1 DOSE PACK PO SCH (09:00)
[2020-08-20] MEDS: AMLODIPINE 5MG TABLET PO SCH ×2 (09:11→21:00)
[2020-08-20] MEDS: PANTOPRAZOLE 40MG DR TABLET PO SCH ×2 (09:11→20:30)
[2020-08-20] MEDS: RISPERIDONE 1MG TABLET PO SCH ×2 (09:11→20:30)
[2020-08-20] MEDS: LISINOPRIL 20MG TABLET PO SCH ×2 (09:12→21:00)
[2020-08-20 12:00] VITALS: BP 95/55
[2020-08-20 16:00] VITALS: BP 121/71
[2020-08-20] MEDS: TRAZODONE HCL 50MG TABLET PO SCH (20:30)
[2020-08-21] MEDS: ACETAMINOPHEN 325MG TABLET PO PRN ×3 (00:25→19:01)
[2020-08-21 04:00] VITALS: BP 154/93
[2020-08-21] MEDS: LACTULOSE 20G/30ML UDC PO SCH ×2 (06:00→14:00)
[2020-08-21] MEDS: GABAPENTIN 100MG CAPSULE PO SCH ×3 (06:14→21:22)
[2020-08-21 08:00] VITALS: BP 166/84
[2020-08-21] MEDS: PANTOPRAZOLE 40MG DR TABLET PO SCH ×2 (09:09→21:23)
[2020-08-21] MEDS: CLONIDINE 0.2MG TABLET PO PRN (09:09)
[2020-08-21] MEDS: RISPERIDONE 1MG TABLET PO SCH ×2 (09:09→21:22)
[2020-08-21 12:00] VITALS: BP 134/85
[2020-08-21 16:00] VITALS: BP 108/75
[2020-08-21 20:00] VITALS: BP 93/59
[2020-08-21] MEDS: TRAZODONE HCL 50MG TABLET PO SCH (21:23)
[2020-08-22] VITALS: BP 127/64
[2020-08-22] MEDS: ACETAMINOPHEN 325MG TABLET PO PRN (02:17)
[2020-08-22 04:00] VITALS: BP 107/64
[2020-08-22 08:00] VITALS: BP 100/59
[2020-08-22] MEDS: PANTOPRAZOLE 40MG DR TABLET PO SCH (08:46)
[2020-08-22] MEDS: RISPERIDONE 1MG TABLET PO SCH (08:46)
[2020-08-22 12:00] VITALS: BP 141/72
[2020-08-22] MEDS ORDERED: GABAPENTIN 100MG CAPSULE PO SCH (14:00)
[2020-08-22 14:35] VITALS: BP 141/72
== END 2020-08-22 16:20 | disposition home health service (06) | DRG 242 ==
LOC: ER 23:05 → 5EST 07-15 00:41 → EDBEDREQSVC 07-15 06:20 → ENRESERV 07-15 08:39 → 6EST 07-24 02:40
PROVIDERS: ADMIT Internal Medicine; ATTEND Internal Medicine
PROC: 30233N1 Transfusion of Nonautologous Red Blood Cells into Peripheral Vein, Percutaneous Approach (ICD-10-PCS; 2020-07-16)
PROC: 0DB78ZX Excision of Stomach, Pylorus, Via Natural or Artificial Opening Endoscopic, Diagnostic (ICD-10-PCS; principal; 2020-07-18)
DX: K22.11 Ulcer of esophagus with bleeding (principal); S22.080A Wedge compression fracture of T11-T12 vertebra, initial encounter for closed fracture; I31.3 Pericardial effusion (noninflammatory); Q45.3 Other congenital malformations of pancreas and pancreatic duct; K26.4 Chronic or unspecified duodenal ulcer with hemorrhage; K31.5 Obstruction of duodenum; F20.9 Schizophrenia, unspecified; I71.2 Thoracic aortic aneurysm, without rupture; K29.61 Other gastritis with bleeding; K29.81 Duodenitis with bleeding; K21.01 Gastro-esophageal reflux disease with esophagitis, with bleeding; I69.354 Hemiplegia and hemiparesis following cerebral infarction affecting left non-dominant side; D50.0 Iron deficiency anemia secondary to blood loss (chronic); B19.20 Unspecified viral hepatitis C without hepatic coma; F17.210 Nicotine dependence, cigarettes, uncomplicated; G40.909 Epilepsy, unspecified, not intractable, without status epilepticus; G89.4 Chronic pain syndrome; I25.10 Atherosclerotic heart disease of native coronary artery without angina pectoris; J44.9 Chronic obstructive pulmonary disease, unspecified; K80.50 Calculus of bile duct without cholangitis or cholecystitis without obstruction; N20.0 Calculus of kidney; Z20.822 Contact with and (suspected) exposure to COVID-19; E78.00 Pure hypercholesterolemia, unspecified; R16.0 Hepatomegaly, not elsewhere classified; W18.39XA Other fall on same level, initial encounter; K44.9 Diaphragmatic hernia without obstruction or gangrene; F41.1 Generalized anxiety disorder; Z90.49 Acquired absence of other specified parts of digestive tract; Z90.710 Acquired absence of both cervix and uterus; Y93.89 Activity, other specified; Y92.89 Other specified places as the place of occurrence of the external cause; Y99.8 Other external cause status; Z79.899 Other long term (current) drug therapy; F31.9 Bipolar disorder, unspecified; R07.89 Other chest pain; I10 Essential (primary) hypertension
CPT/HCPCS: 36415; 70551; 71045; 72128; 72131; 72192; 73502; 74018; 74176; 74181; 76700; 80048; 80053; 80076; 82150; 82607; 82728; 82746; 82962; 83540; 83550; 83605; 83735; 84100; 84484; 85014; 85018; 85025; 85027; 85044; 86850; 86900; 86920; 87426; 88305; 88312; 88313; 90585; 93005; 94640; 97116; 97162; 97164; 97165; 97530; 97535; 99285; C1893; C9113; J1200; J1885; J2060; J2270; J2405; J2704; J2765; J7030; J7040; J8597; P9016